=== PATIENT | female | born 1990 ===

== ENCOUNTER 2022-11-09 17:40 | Emergency (ER) | payer OTHER ==
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
--- NOTE | 2022-11-09 18:20 | RAD REPORT ---
EXAM DESCRIPTION: RAD - Hand Right 3 View - 11/09/2022 6:12 pm CLINICAL HISTORY: laceration COMPARISON: No comparisons FINDINGS: No fracture, dislocation or radiopaque foreign body.
[2022-11-09] MEDS ORDERED: LIDOCAINE 1% MPF 30 ML VIAL ONE (19:30)
[2022-11-09] MEDS ORDERED: TDAP (DIPHTH,PERTUSS(ACELL),TET VAC) 0.5 ML VIAL IMVAC ONE (19:33)
--- NOTE | 2022-11-09 20:17 | EDPHYS ---
Physician Documentation [facility] Name: Marycruz He Age: 32 yrs Sex: Female : 1990 Arrival Date: 11/09/2022 Time: 17:42 Bed 10 Private MD: ED Physician Bill Tony HPI: 11/09 20:16 This 32 yrs old Female presents to ER via EMS with complaints of Laceration To Hand. kb 20:16 The patient has a laceration related to: fell into window and cut hand occurred at home, and there are no complicating factors. The injury was accidental. The laceration(s) is(are) located on the dorsal aspect of proximal phalanx of right index finger and dorsal aspect of proximal phalanx of right thumb. Onset: The symptoms/episode began/occurred just prior to arrival. Associated signs and symptoms: The patient has no apparent associated signs or symptoms. The patient has not experienced similar symptoms in the past. The patient has not recently seen a physician. PLEATER HAND: 17:56 LMP 10/2022 [facility] Historical: - Allergies: 17:56 No Known Allergies; [facility] - PMHx: 17:56 Anxiety; [facility] - Immunization history:: Adult Immunizations up to date. - Social history:: Smoking status: Patient reports the use of cigarette tobacco products, smokes one pack cigarettes per day. ROS: 20:13 Constitutional: Negative for fever, chills, and weight loss. kb 20:13 Skin: Positive for laceration(s), of the dorsal aspect of proximal phalanx of right thumb and dorsal aspect of proximal phalanx of right index finger. 20:13 All other systems are negative. Exam: 20:13 Constitutional: This is a well developed, well nourished patient who is awake, alert, kb and in no acute distress. Head/Face: Normocephalic, atraumatic. ENT: Moist Mucous membranes Cardiovascular: Regular rate and rhythm with a normal S1 and S2. No gallops, murmurs, or rubs. No pulse deficits. Respiratory: Respirations even and unlabored. No increased work of breathing. Talking in full sentences MS/ Extremity: Pulses equal, no cyanosis. Neurovascular intact. Full, normal range of motion. Neuro: Awake and alert, GCS 15, oriented to person, place, time, and situation. Moves all extremities. Normal gait. Psych: Awake, alert, with orientation to person, place and time. Behavior, mood, and affect are within normal limits. 20:13 Skin: injury, laceration(s), the wound is approximately 2.5 cm(s), of the dorsal aspect of proximal phalanx of right index finger, the second wound is approximately 1 cm(s), of the dorsal aspect of proximal phalanx of right thumb, that can be described as clean, no foreign body, linear, without bleeding. Vital Signs: 17:54 BP 153 / 92; Pulse 110; Resp 18; Temp 98.9; Pulse Ox 95% on R/A; Weight 95.71 kg; jh5 Height 5 ft. 5 in. (165.10 cm); Pain 6/10; 19:44 BP 149 / 86; Pulse 103; Resp 18; Pulse Ox 97% on R/A; Pain 0/10; ld1 20:46 BP 139 / 76; Pulse 99; Resp 18; Pulse Ox 99% on R/A; ld1 17:54 Body Mass Index 35.11 (95.71 kg, 165.10 cm) [facility] Laceration: 20:14 Wound Repair of 2.5cm ( 1.0in ) subcutaneous laceration to dorsal aspect of proximal kb phalanx of right index finger. Linear shaped.. Distal neuro/vascular/tendon intact. Anesthesia: Wound infiltrated with 2 mls of 1% lidocaine. Wound prep: Extensive cleansing with hibiclenz by me, Wound irrigation with saline by me. Skin closed with 5 5-0 Prolene using simple sutures and sterile technique. Patient tolerated well. 20:14 Wound Repair of 1cm ( 0.4in ) subcutaneous laceration to dorsal aspect of proximal kb phalanx of right thumb. Linear shaped.. Distal neuro/vascular/tendon intact. Anesthesia: Wound infiltrated with 1 mls of 1% lidocaine. Wound prep: Extensive cleansing with hibiclenz by me, Wound irrigation with saline by me. Skin closed with 2 5-0 Prolene using simple sutures and sterile technique. Patient tolerated well. MDM: 19:16 Patient medically screened. 20:15 Data reviewed: vital signs, nurses notes. Data interpreted: Pulse oximetry: on room air kb is 97 %. Interpretation: normal. Counseling: I had a detailed discussion with the patient and/or guardian regarding: the historical points, exam findings, and any diagnostic results supporting the discharge/admit diagnosis, radiology results, the need for outpatient follow up, a family practitioner, to return to the emergency department if symptoms worsen or persist or if there are any questions or concerns that arise at home. 11/09 17:43 Order name: Hand Right 3 View XRAY; Complete Time: 18:26 ms3 11/09 19:27 Order name: Dressing - Wound; Complete Time: 19:36 kb 11/09 19:27 Order name: Gloves, Sterile; Complete Time: 19:36 kb 11/09 19:27 Order name: Prolene, Sutures; Complete Time: 19:36 kb 11/09 19:27 Order name: Setup Suture Tray; Complete Time: 19:36 kb Administered Medications: 19:36 Drug: Tetanus-Diphtheria Toxoid Adult 0.5 ml {Portfolio Analyst: [employer] ([employer]). Exp: ld1 06/11/2023. Lot #: [id number]. } Route: IM; Site: right deltoid; 20:18 Follow up: Response: (VIS) Vaccine information sheet provided today. Questions and/or jh5 concerns addressed. VIS edition date: Jul 03, 2021.; No adverse reaction 20:18 Drug: Lidocaine (1 %) 1 vials {Note: Administered by Amy MAYER.} Volume: 20 jh5 ml; Route: Infiltration; Disposition Summary: 11/09/22 20:17 Discharge Ordered Location: Home kb Condition: Stable kb Diagnosis - Laceration without foreign body of right thumb without damage to nail kb - Laceration without foreign body of right index finger without damage to nail kb Followup: kb - With: Emergency Department - When: As needed - Reason: Worsening of condition Followup: kb - With: Private Physician - When: 2 - 3 days - Reason: Recheck today's complaints, Continuance of care, Re-evaluation by your physician Discharge Instructions: - Discharge Summary Sheet kb - Laceration Care, Adult, [id number] kb Forms: - Medication Reconciliation Form kb - Thank You Letter kb - Antibiotic Education kb - Prescription Opioid Use kb Signatures: Dispatcher [employer] EDAmy Lopez FNP-C FNP-Ckb Dibbern, Lauren, RN RN ld1 Jennifer Oliver, RN RN jh5
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
[2022-11-09] MEDS ORDERED: DERMABOND SKIN ADHESIVE TOP ONE (20:42)
[2022-11-09 20:57] VITALS: TEMP 98.9
[2022-11-09 21:00] VITALS: BP 139/76; O2SAT 99
== END 2022-11-09 20:47 | disposition home or self-care (01) ==
LOC: ER 17:40
PROC: 0JQJ0ZZ Repair Right Hand Subcutaneous Tissue and Fascia, Open Approach (ICD-10-PCS; principal; 2022-11-09)
DX: S61.011A Laceration without foreign body of right thumb without damage to nail, initial encounter (principal); S61.210A Laceration without foreign body of right index finger without damage to nail, initial encounter; Z23 Encounter for immunization; F17.210 Nicotine dependence, cigarettes, uncomplicated
CPT/HCPCS: 73130; 12002; J2001